=== PATIENT | male | born 1990 | race Asian ===

== ENCOUNTER 2018-10-26 04:25 | Emergency (ER) | payer OTHER ==
[~2018-10-26] VITALS: Ht 177.8 cm; Wt 99.8 kg
[2018-10-26 04:32] VITALS: BP 167/89; Ht 177.8 cm; Wt 99.8 kg
== END 2018-10-26 04:32 | disposition home or self-care (01) ==
LOC: ED 04:25
DX: Z02.89 Encounter for other administrative examinations (principal)